=== PATIENT | male | born 1970 | race Caucasian/White ===

== ENCOUNTER 2016-08-31 10:02 | Emergency (ER) | payer OTHER ==
[2016-08-31 10:39] VITALS: BP 107/69
--- NOTE | 2016-08-31 10:57 | UC ---
Abdominal Pain Male HPI - HPI Summary HPI Summary: diarrhea for 2 days. Yesterday he had vague periumbilical aching pain. Today he is having INTERMITTENT flashes of pain in right lower quadrant. Pain will come on, but somewhat intense for less than a minute, then go away. No vomiting or fever. No continuation of the diarrhea today. Was able to eat some juice and toast today with no change in the pain. No history of abdominal surgeries. HE is worried about appendicitis. - History of Current Complaint Chief Complaint: UCAbdominalPain Stated Complaint: ABD PAIN Time Seen by Provider: 08/31/16 10:51 Hx Obtained From: Patient Onset/Duration: Gradual Onset, Lasting Days - 2 Timing: Intermittent Episodes Lasting: - less than a minute Severity Initially: Mild Severity Currently: Moderate Location: Discrete At: RLQ Radiates: No Character: Aching, Colicy, Cramping, Sharp Aggravating Factor(s):: Nothing Alleviating Factor(s): Spontaneous Resolution, Nothing Associated Signs And Symptoms: Positive: Decreased Appetite, Diarrhea - yesterday, mild. Negative: Fever, Cough, Chest Pain, Dizzy, Back Pain, Constipation, Blood in Stool, Urinary Symptoms, Nausea, Vomiting - Risk Factors Testicular Torsion: Negative Cardiac Risk Factors: Negative - Allergies/Home Medications Allergies/Adverse Reactions: Allergies Allergy/AdvReac Type Severity Reaction Status Date / Time Penicillins [PCN] Allergy Rash Verified 01/06/16 21:46 Home Medications: Home Medications Lisdexamfetamine Dimesylate [Vyvanse] 50 mg PO 08/31/16 [History] PMH/Surg Hx/FS Hx/Imm Hx Endocrine History Of: Denies: Diabetes, Thyroid Disease Cardiovascular History Of: Denies: Cardiac Disorders, Hypertension Respiratory History Of: Denies: COPD, Asthma GI/ History Of: Denies: Ulcer Psychological History Of: Reports: Depression - ON MEDICATION FOR - Surgical History Surgical History: Yes Surgery Procedure, Year, and Place: COMPOUND FRACTURE- WRIST. REPAIR OF FRACTURED NOSE. CYST REMOVED FROM [facility]. ALL DONE A TEENAGER. RIGHT THUMB SURGERY - Family History Known Family History: Positive: Other - no known GI disorders - Social History Occupation: Employed Full-time Lives: With Family Alcohol Use: None Substance Use Type: None Smoking Status (MU): Former Smoker Amount Used/How Often: 1/2-1 PPD X 15 YEARS When Did the Patient Quit Smoking/Using Tobacco: 2011 - Immunization History Most Recent Tetanus Shot: within the last 5 years Review of Systems Constitutional: Negative Skin: Negative Eyes: Negative ENT: Negative Respiratory: Negative Cardiovascular: Negative Gastrointestinal: Abdominal Pain, Diarrhea Genitourinary: Negative Motor: Negative Neurovascular: Negative Musculoskeletal: Negative Neurological: Negative Psychological: Negative All Other Systems Reviewed And Are Negative: Yes Physical Exam Triage Information Reviewed: Yes Appearance: Well-Appearing, No Pain Distress, Well-Nourished Vital Signs: Initial Vital Signs Temp 97.5 F 08/31/16 10:35 Pulse 54 08/31/16 10:35 Resp 18 08/31/16 10:35 BP 107/69 08/31/16 10:35 Pulse Ox 99 08/31/16 10:35 Vital Signs Reviewed: Yes Eye Exam: Normal Neck exam: Normal Respiratory Exam: Normal Cardiovascular Exam: Normal Abdomen Description: Positive: No Organomegaly, Soft, Bruit, Other: - mild discomfort on palpation in RLQ, mild rebound tenderness. Jumps up from chair, no discomfort with walking.. Negative: CVA Tenderness (R), CVA Tenderness (L), Distended, Guarding, Hernia @, Hepatomegaly, McBurney's Point Tenderness, Peritoneal Signs, Pulsatile Mass, Splenomegaly Musculoskeletal Exam: Normal Neurological Exam: Normal Psychological Exam: Normal Abd Pain Male Course/Dx - Course Course Of Treatment: I don't have enough suspicion for appendicitis at this time to order a CT abdomen with contrast. We discussed the idea that this is likely an enteritis that goes along with the idea, but could be early appendicitis. He will monitor symptoms at home, go to ER if fever, worsening pain, vomiting. - Differential Dx/Clinical Impression Provider Diagnoses: enteritis Discharge - Discharge Plan Condition: Stable Disposition: HOME Prescriptions: Dicyclomine CAP* [Bentyl CAP*] 10 mg PO TID PRN #30 cap PRN Reason: intestinal cramping Patient Education Materials: Gastroenteritis (ED) Additional Instructions: If your pain worsens and becomes constant, particularly if you have a fever over 100.5, vomiting, and can't walk straight upright because of pain, go to the ER for further evaluation
== END 2016-08-31 11:01 | disposition home or self-care (01) ==
LOC: UCEAST 10:02
DX: K52.9 Noninfective gastroenteritis and colitis, unspecified (principal); F32.9 Major depressive disorder, single episode, unspecified; Z87.891 Personal history of nicotine dependence
CPT/HCPCS: 99212; G0463

== ENCOUNTER 2016-09-26 21:02 | Emergency (ER) | payer OTHER ==
[2016-09-26 22:17] VITALS: BP 134/72
--- NOTE | 2016-09-26 23:25 | UC ---
Deep Garrett Erika, scribed for Deena Muñoz MD on 09/26/16 at 2230 . Abdominal Pain Male HPI - HPI Summary HPI Summary: Patient is a 46-year-old male presenting to [facility] with a CC of a lump superior to the umbilicus. Patient noticed it this morning and is concerned that it is a hernia. Patient notes associated periumbilical pain that is rated a 4/10. 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 - History of Current Complaint Chief Complaint: UCAbdominalPain Stated Complaint: ABD PAIN Time Seen by Provider: 09/26/16 22:26 Hx Obtained From: Patient Onset/Duration: Lasting Hours - noticed hours ago, Still Present Timing: Constant Severity Currently: Moderate Pain Intensity: 4 Pain Scale Used: 0-10 Numeric Location: Other - periumbilical Radiates: No Character: Aching Aggravating Factor(s):: Nothing Alleviating Factor(s): Nothing Associated Signs And Symptoms: Positive: Other - lump in periumbilical area. Negative: Fever, Constipation, Urinary Symptoms - Allergies/Home Medications Allergies/Adverse Reactions: Allergies Allergy/AdvReac Type Severity Reaction Status Date / Time Penicillins [PCN] Allergy Rash Verified 01/06/16 21:46 PMH/Surg Hx/FS Hx/Imm Hx Endocrine History Of: Denies: Diabetes, Thyroid Disease Cardiovascular History Of: Denies: Cardiac Disorders, Hypertension Respiratory History Of: Denies: COPD, Asthma GI/ History Of: Denies: Ulcer Psychological History Of: Reports: Depression - ON MEDICATION FOR - Surgical History Surgical History: Yes Surgery Procedure, Year, and Place: COMPOUND FRACTURE- WRIST. REPAIR OF FRACTURED NOSE. CYST REMOVED FROM [facility]. ALL DONE A TEENAGER. RIGHT THUMB SURGERY - Family History Known Family History: Positive: Other - adenocarcinoma father - Social History Occupation: Employed Full-time Lives: With Family Alcohol Use: None Substance Use Type: None Smoking Status (MU): Former Smoker Amount Used/How Often: 1/2-1 PPD X 15 YEARS When Did the Patient Quit Smoking/Using Tobacco: 2011 - Immunization History Most Recent Tetanus Shot: within the last 5 years Review of Systems Constitutional: Negative Skin: Negative Eyes: Negative ENT: Negative Respiratory: Negative Cardiovascular: Negative Gastrointestinal: Abdominal Pain - with lump Genitourinary: Negative Motor: Negative Neurovascular: Negative Musculoskeletal: Negative Neurological: Negative Psychological: Negative All Other Systems Reviewed And Are Negative: Yes Physical Exam Triage Information Reviewed: Yes Appearance: Well-Appearing, Well-Nourished, Pain Distress - mild Vital Signs: Initial Vital Signs Temp 98.6 F 09/26/16 21:42 Pulse 69 09/26/16 21:42 Resp 16 09/26/16 21:42 BP 134/72 09/26/16 21:42 Pulse Ox 99 09/26/16 21:42 Vital Signs Reviewed: Yes Eyes: Positive: Conjunctiva Clear ENT: Positive: Normal ENT inspection Neck: Positive: Supple Respiratory: Positive: No respiratory distress Cardiovascular: Positive: RRR, Pulses Normal, Brisk Capillary Refill Abdomen Description: Positive: No Organomegaly, Soft, Hernia @ - tiny reducible umbilical hernia and 2cm reducible ventral hernia superior to umbilicus; no redness, Other: - tender periumbilical. Negative: Distended, Guarding, McBurney 's Point Tenderness, Peritoneal Signs, Pulsatile Mass Bowel Sounds: Positive: Present Musculoskeletal: Positive: Strength Intact, ROM Intact Neurological: Positive: Alert, Muscle Tone Normal Psychological Exam: Normal Skin Exam: Normal Abd Pain Male Course/Dx - Course Course Of Treatment: pt advised of signs and symptoms of incarcerated hernia and advised to go to ED if unable to reduce hernia - Differential Dx/Clinical Impression Differential Diagnosis/HQI/PQRI: Appendicitis, Bowel Obstruction, Diverticulitis , Other - hernia Provider Diagnoses: Umbilical hernia, reducible. ventral hernia, reducible Discharge - Discharge Plan Condition: Stable Disposition: HOME Patient Education Materials: Umbilical Hernia (ED) Referrals: Shaggy Clayton MD [Medical Doctor] - Maximino Coe MD [Primary Care Provider] - 2 Days Additional Instructions: Please call general surgery for a follow up. GO TO THE ER FOR ANY NEW OR WORSENING SYMPTOMS. The documentation as recorded by the Deep huertas Erika accurately reflects the service I personally performed and the decisions made by , Deena Muñoz MD.
== END 2016-09-26 22:43 | disposition home or self-care (01) ==
LOC: UCEAST 21:02
DX: K42.9 Umbilical hernia without obstruction or gangrene (principal); K43.9 Ventral hernia without obstruction or gangrene; Z87.891 Personal history of nicotine dependence; Z88.0 Allergy status to penicillin
CPT/HCPCS: 99211; G0463

== ENCOUNTER → 2016-10-12 07:47 | Day surgery (SDC) | payer OTHER ==
--- NOTE | 2016-09-30 07:47 | HP ---
PREOPERATIVE HISTORY AND PHYSICAL: DATE OF ADMISSION: 10/12/16 This patient is scheduled for same-day surgery admission by Dr. Sanon on 10/12/16. ATTENDING SURGEON: Roland Sanon MD (dictated by Lila Kelsey NP). CHIEF COMPLAINT: Umbilical hernia. HISTORY OF PRESENT ILLNESS: The patient is a 46-year-old male recently evaluated by Dr. Sanon; the patient reports a history of umbilical hernia as an infant and he reports that it was not repaired. Recently on awakening, he noticed a painful lump above the umbilicus. He presented to the [facility] [place] [place] that day and was diagnosed with a reducible umbilical hernia. The patient continues to manually reduce it since then. He denies any nausea, vomiting or change in bowel habits or urinary habits. He denies any ongoing pain. Dr. Sanon has examined the patient and notes a 1 cm reduced umbilical hernia and there is also a reducible mass superior to this, which is mildly tender. Dr. Sanon has recommended open repair of the ventral hernias, both umbilical and supraumbilical, possible mesh as a same- day surgery procedure and has discussed the nature of the surgery, the rationale for the surgery, the relevant risks, benefits, and alternatives. Today I reviewed the typical postoperative care and recovery, the patient has had a chance to ask questions and stated that he understands the information and is satisfied with the answers given to his questions. He will sign surgical consent on the day of surgery. PAST MEDICAL HISTORY: He was diagnosed with mononucleosis and cytomegalovirus in June 2016; he states that he also had an episode of psoriasis associated with psoriatic arthritis at that time. PAST SURGICAL HISTORY: Excision of nail on the right thumb, 2014 after a work injury; repair of compound fracture right wrist, 1985; oral reconstructive surgery age 15 after trauma; and excision of cysts along the mandible in 1989. MEDICATIONS: Lexapro 20 mg p.o. daily in the morning. ALLERGIES: PENICILLIN causes hives. FAMILY HISTORY: Father at age 53 with a history of lung cancer. Mother is alive and well at age 75. No known anesthesia complications, bleeding tendencies or clotting disorders in the family. SOCIAL HISTORY: He is and is employed as a estrella; he quit smoking about 8 years ago after smoking 1 pack per day for 10 years; he denies the use of alcohol or other substances and routinely exercises. REVIEW OF SYSTEMS: He denies any recent constitutional symptoms; he has recovered from mononucleosis, cytomegalovirus and psoriatic arthritis which was initially diagnosed in June 2016; he denies any cardiovascular conditions or complaints; he denies any history of deep vein thrombosis or pulmonary embolism. He denies any respiratory conditions or complaints; he denies any previous anesthesia complications. He denies any gastrointestinal complaints. He denies any signs or symptoms to suggest incarceration or strangulation of the ventral hernias. He denies any bleeding tendencies and has never received a blood transfusion. He denies any genitourinary complaints; he has bouts of depression and suffers from occasional migraine headaches. He denies any musculoskeletal complaints and denies any neurologic complaints. PHYSICAL EXAM: GENERAL SURVEY: The patient is a 46-year-old male, well developed, well nourished, in no acute distress. VITAL SIGNS: Height 69 inches, weight 200 pounds, body mass index 29.5. Blood pressure 102/68, pulse 74 and regular, respiratory rate 16, temperature 98.2 tympanic. HEENT: Benign. NECK: Supple. No cervical lymphadenopathy. No supraclavicular lymphadenopathy. BACK: No CVA tenderness. LUNGS: Breath sounds bilaterally clear and equal. HEART: Regular rate and rhythm. No murmurs or rubs appreciated. ABDOMEN: Active bowel sounds, soft and nondistended. There is a reducible mass in the supraumbilical region, which is mildly tender consistent with hernia and a small umbilical hernia. Edges of the defect are not well appreciated. No other palpable masses. No organomegaly. GENITALIA AND RECTAL EXAMS: Deferred. EXTREMITIES: Warm without edema or skin ulceration. SKIN: Warm, dry and intact. NEUROLOGIC: Alert and oriented x3. Steady gait. IMPRESSION: Ventral hernias (supraumbilical and umbilical). PLAN: Same-day surgery admission to Dr. Sanon' service on 10/12/16, for open repair of the ventral hernias (supraumbilical and umbilical) with possible mesh. LILA KELSEY NP CC: Roland Sanon MD at [facility]; Maximino Coe MD* [id number]/[facility] #: [id number] MARYD
[~2016-10-12 07:47] MED LIST: Buffered Lidocaine 1% SYRIN* 3 ML/SYR SYRINGE INTRADERM ONE; Bupivacaine 0.5% W/EPI SDV* 30 ML VIAL ONE; Clindamycin 900 MG IVPREMIX(* 900 MG/50 ML SDV IV ONE; Dexamethasone IV* 4 MG/ML 1 ML (4 MG) IV SLOW PU ONE; Dexamethasone IV* 4 MG/ML 1 ML (4 MG) ONE; DiMENhydriNATE IV* 50 MG/ML VIAL IV PUSH PRN; Famotidine IV* 10 MG/ML 2 ML (20 mg) IV ONE; Famotidine IV* 10 MG/ML 2 ML (20 mg) ONE; HYDROmorphone* 1 MG/ML 1 ML SYR IV PRN; HYDROmorphone* 1 MG/ML 1 ML SYR ONE; Ketorolac INJ* 30 MG/ML 1 ML VIAL ONE; Lidocaine 2% PF* 5 ML VIAL ONE; Midazolam* 1 MG/ML 2 ML VIAL (2 MG) ONE; Ondansetron INJ* 2 MG/ML VIAL IV PRN; Ondansetron INJ* 2 MG/ML VIAL ONE; PROCHLORPERAZINE INJ 5 MG/ML 2 ML VIAL IV PRN; Propofol* 10 MG/ML 20 ML BTL IV PUSH ONE; Scopolamine 1.5 mg* PATCH TRANSDERM PRN; Scopolomine PATCH Remove* 1 NOTE MISC PATCH OFF ONE; fentaNYL* 50 MCG/ML 2 ML VIAL (100 MCG VIAL) IV PRN; fentaNYL* 50 MCG/ML 2 ML VIAL (100 MCG VIAL) ONE; oxyCODONE/Acetamin 5/325 MG* TAB ONE; oxyCODONE/Acetamin 5/325 MG* TAB PO ONE
[2016-10-12 14:58] VITALS: BP 106/64
--- NOTE | 2016-10-13 14:54 | OP ---
DATE OF OPERATION: 10/12/16 - [facility] DATE OF : 74 SURGEON: Roland Sanon MD PRESCHOOL TEACHER ASSISTANT: None. ANESTHESIOLOGIST: Dr. Moore. ANESTHESIA: General. PRE-OP DIAGNOSIS: Ventral hernias. POST-OP DIAGNOSIS: Ventral hernias. OPERATIVE PROCEDURE: Open repair of ventral hernias with mesh. ESTIMATED BLOOD LOSS: Minimal. IV FLUIDS: Crystalloid. SPECIMEN: None. DRAINS: None. COMPLICATIONS: None. COUNT: The instrument, needle, and sponge counts were correct. DESCRIPTION OF PROCEDURE: The patient was brought to the operating room and placed on the table supine. Sequential compression devices were placed on both lower extremities and general anesthesia was administered. His abdomen was prepped and draped in the usual sterile fashion. Time-out was performed and he received appropriate intravenous antibiotics. Local anesthetic was infiltrated in the supraumbilical region situated between the patient's umbilical hernia and supraumbilical hernia. After creating the incision with 15-blade scalpel, subcutaneous tissues were divided with cautery, and blunt and sharp dissection was used to dissect out the supraumbilical hernia site, which was about 1 cm and contained fat, which was easily reduced and the site was closed with 0 Ti-Cron suture in interrupted figure-of-8 fashion. There was a small bridge of about a centimeter of fascia before the umbilical hernia was encountered and the umbilical hernia was about 1.5 cm in size. After dividing the umbilical stalk from the abdominal wall and reducing the contents of the umbilical hernia, which was fat, it was decided to place a Ventrio mesh circular patch to perform the repair. The medium size patch was placed into the peritoneal cavity and drawn up through the umbilical hernia defect and then sutured superiorly and inferiorly with 0 Ti-Cron sutures in interrupted fashion. Tabs of the mesh were cut and then the umbilical defect was closed with 0 Polysorb in interrupted figure- of-8 fashion. The umbilical stalk was reapproximated to the fascia with 3-0 Polysorb and the skin was closed with 4-0 Monocryl in running subcuticular fashion. Steri-Strips were applied and then dressings of 4x4 gauze were applied as well. The patient tolerated the procedure. He was awakened uneventfully and transferred to the recovery room in stable condition. CC: Maximino Coe MD* [id number]/[facility] #: [id number] MINI
== END | disposition home or self-care (01) ==
LOC: OR 07:47
PROVIDERS: ATTEND Surgery
DX: H43.9 Unspecified disorder of vitreous body (principal); Z87.891 Personal history of nicotine dependence; K21.9 Gastro-esophageal reflux disease without esophagitis
CPT/HCPCS: A9270-GY; C1781; J1100; J1170; J1885; J2250; J2405; J2704; J3010

== ENCOUNTER 2016-12-03 21:02 | Emergency (ER) | payer OTHER ==
[2016-12-03 21:10] VITALS: BP 118/67
[2016-12-03] MEDS ORDERED: Clindamycin CAP* 150 MG PO ONE (21:21)
--- NOTE | 2016-12-03 21:21 | UC ---
Dental HPI - HPI Summary HPI Summary: The patient comes in today for: 1. Pain behind the back right lower molar: Onset: 2 days. Palliative/provocative: Nothing makes the pain better or worse other than ibuprofen helping. Quality: Ache Region: Behind the right lower molar. Severity: 7/10 Time: Constant. Associated symptoms: Fevers: None. * - History of Current Complaint Chief Complaint: UCDentalProblem Stated Complaint: DENTAL COMPLAINT Time Seen by Provider: 12/03/16 21:14 - Allergies/Home Medications Allergies/Adverse Reactions: Allergies Allergy/AdvReac Type Severity Reaction Status Date / Time Penicillins [PCN] Allergy Severe Rash Verified 12/03/16 21:11 Home Medications: Home Medications Ibuprofen TAB* [Motrin TAB* 600 MG] 12/03/16 [History] PMH/Surg Hx/FS Hx/Imm Hx Previously Healthy: No Endocrine History Of: Denies: Diabetes, Thyroid Disease, Hyperthyroidism, Hypothyroidism, Dyslipidemia Cardiovascular History Of: Denies: Cardiac Disorders, Hypertension, Pacemaker/ICD, Myocardial Infarction , Congestive Heart Failure, Atrial Fibrillation, Deep Vein Thrombosis, Bleeding Disorders Respiratory History Of: Denies: COPD, Asthma, Bronchitis, Pneumonia, Pulmonary Embolism GI/ History Of: Denies: Gastroesophageal Reflux, Ulcer, Gastrointestinal Bleed, Gall Bladder Disease, Kidney Stones, Diverticulitis, Renal Disease, Urosepsis Neurological History Of: Reports: Migraine Denies: TIA, CVA, Dementia, Seizures Psychological History Of: Reports: Depression - ON MEDICATION FOR Denies: Anxiety, Bipolar Disorder, Schizophrenia, Post Traumatic Stress Disorder Cancer History Of: Denies: Lung Cancer, Colorectal Cancer, Breast Cancer, Prostate Cancer, Cervical Cancer Other History Of: Negative For: HIV, Hepatitis B, Hepatitis C, Anticoagulant Therapy - Surgical History Surgical History: Yes Surgery Procedure, Year, and Place: COMPOUND FRACTURE- WRIST. REPAIR OF FRACTURED NOSE. CYST REMOVED FROM [facility]. ALL DONE A TEENAGER. RIGHT THUMB SURGERY. Fibroma. hernia - Family History Known Family History: Positive: Other - adenocarcinoma father Negative: Cardiac Disease, Hypertension - Social History Occupation: Employed Full-time Alcohol Use: None Substance Use Type: None Smoking Status (MU): Former Smoker Amount Used/How Often: 1/2-1 PPD X 15 YEARS When Did the Patient Quit Smoking/Using Tobacco: 2011 - Immunization History Most Recent Tetanus Shot: within the last 5 years Review of Systems Constitutional: Negative Skin: Negative Eyes: Negative ENT: Dental Pain Respiratory: Negative Cardiovascular: Negative Gastrointestinal: Negative Genitourinary: Negative Motor: Negative All Other Systems Reviewed And Are Negative: Yes Physical Exam Triage Information Reviewed: Yes Appearance: Well-Appearing, No Pain Distress, Well-Nourished Vital Signs: Initial Vital Signs Temp 98.9 F 12/03/16 21:06 Pulse 88 12/03/16 21:06 Resp 18 12/03/16 21:06 BP 118/67 12/03/16 21:06 Pulse Ox 98 12/03/16 21:06 Vital Signs Reviewed: Yes Eyes: Positive: Conjunctiva Clear. Negative: Discharge ENT: Positive: Hearing grossly normal. Negative: Pharyngeal erythema, Nasal congestion, TM bulging, TM dull, TM red, Tonsillar swelling, Tonsillar exudate Dental: Positive: Percussion Tenderness @ - #30. Negative: Gross Decay/Caries @ , Dental Fracture @ Neck: Positive: Supple, Nontender, No Lymphadenopathy. Negative: Nuchal Rigidity Respiratory: Positive: Chest non-tender, Lungs clear, No respiratory distress, No accessory muscle use. Negative: Crackles, Stridor Cardiovascular: Positive: RRR, No Murmur Abdomen Description: Positive: Nontender, No Organomegaly, Soft. Negative: Distended, Guarding Musculoskeletal: Positive: Strength Intact, ROM Intact, No Edema Neurological: Positive: Alert, Muscle Tone Normal Psychological: Positive: Age Appropriate Behavior, Consolable Skin: Negative: rashes, breakdown Dental Complaint Course/Dx - Course Course Of Treatment: Patient was told that I did not see any obvious problems with his lower right molar or the area around it other than the tenderness of the tooth. Will treat for pulpitis. - Differential Dx/Diagnosis Provider Diagnoses: pulpitis #30 Discharge - Discharge Plan Condition: Stable Disposition: HOME Patient Education Materials: Toothache (ED) Additional Instructions: Please see your dentist as soon as you can.
[2016-12-03] MEDS ORDERED: Ibuprofen TAB* 400 MG PO ONE (21:22)
== END 2016-12-03 21:30 | disposition home or self-care (01) ==
LOC: UCEAST 21:02
DX: K04.01 Reversible pulpitis (principal); Z88.0 Allergy status to penicillin; G43.909 Migraine, unspecified, not intractable, without status migrainosus; F32.9 Major depressive disorder, single episode, unspecified; Z87.891 Personal history of nicotine dependence
CPT/HCPCS: 99212; A9270-GY; G0463

== ENCOUNTER 2018-08-17 07:57 | Emergency (ER) | payer OTHER ==
[2018-08-17 08:05] VITALS: BP 129/81
--- NOTE | 2018-08-17 08:59 | UC ---
Ear Complaint HPI - HPI Summary HPI Summary: Healthy 48-year-old male with complaint of left ear pain. Beginning this morning. He states that he has been congested recently. He denies trauma or swimming. Pain inside ear and with palpation of outer ear. A brief review of current medications, habits and visit history is non- contributory to current complaint. Vital signs are stable. - History of Current Complaint Chief Complaint: UCEar Stated Complaint: EAR COMPLAINT Time Seen by Provider: 08/17/18 08:52 Pain Intensity: 8 - Allergies/Home Medications Allergies/Adverse Reactions: Allergies Allergy/AdvReac Type Severity Reaction Status Date / Time Penicillins Allergy Rash Verified 08/17/18 08:05 PMH/Surg Hx/FS Hx/Imm Hx Previously Healthy: Yes Other History Of: Negative For: HIV, Hepatitis B, Hepatitis C, Anticoagulant Therapy - Surgical History Surgical History: Yes Surgery Procedure, Year, and Place: COMPOUND FRACTURE- [facility]. REPAIR OF FRACTURED NOSE. CYST REMOVED FROM [facility]. ALL DONE A TEENAGER. RIGHT THUMB SURGERY. Fibroma. hernia - Family History Known Family History: Positive: Other - adenocarcinoma father Negative: Cardiac Disease, Hypertension - Social History Occupation: Employed Full-time - contractor Alcohol Use: None Substance Use Type: None Smoking Status (MU): Former Smoker Amount Used/How Often: 1/2-1 PPD X 15 YEARS When Did the Patient Quit Smoking/Using Tobacco: 2011 - Immunization History Most Recent Tetanus Shot: within the last 5 years Review of Systems All Other Systems Reviewed And Are Negative: Yes Constitutional: Positive: Negative Skin: Positive: Negative Eyes: Positive: Negative ENT: Positive: Ear Ache - left Respiratory: Positive: Negative Cardiovascular: Positive: Negative Gastrointestinal: Positive: Negative Genitourinary: Positive: Negative Motor: Positive: Negative Neurovascular: Positive: Negative Musculoskeletal: Positive: Negative Neurological: Positive: Negative Psychological: Positive: Negative Physical Exam Triage Information Reviewed: Yes Appearance: Well-Appearing, No Pain Distress Vital Signs: Initial Vital Signs Temp 97.1 F 08/17/18 08:01 Pulse 73 08/17/18 08:01 Resp 16 08/17/18 08:01 BP 129/81 08/17/18 08:01 Pulse Ox 98 08/17/18 08:01 Vital Signs Reviewed: Yes Eye Exam: Normal Eyes: Positive: Conjunctiva Clear ENT Exam: Normal ENT: Positive: TM red - left, Other - tragus tender, left ear Dental Exam: Normal Neck exam: Normal Neck: Positive: 1 Respiratory Exam: Normal Respiratory: Positive: Chest non-tender, Lungs clear, Normal breath sounds Cardiovascular Exam: Normal Cardiovascular: Positive: RRR, No Murmur, Pulses Normal Abdominal Exam: Normal Abdomen Description: Positive: Nontender, No Organomegaly, Soft Bowel Sounds: Positive: Present Musculoskeletal Exam: Normal Neurological Exam: Normal Psychological Exam: Normal Skin Exam: Normal Ear Complaint Course/Dx - Course Course Of Treatment: Healthy 48-year-old male with complaint of left ear pain. Beginning this morning. He states that he has been congested recently. He denies trauma or swimming. Pain inside ear and with palpation of outer ear. He has a red left ear drum, and a tender tragus, left out ear. Dx is left otitis externa and media. MEDICATIONS REVIEWED. BP ELEVATED secondary to urgent/ emergent current condition. - Differential Dx/Diagnosis Differential Diagnosis/HQI/PQRI: Otitis Externa, Otitis Media Provider Diagnosis: Otitis media, Otitis externa Discharge - Sign-Out/Discharge Documenting (check all that apply): Patient Departure All imaging exams completed and their final reports reviewed: No Studies - Discharge Plan Condition: Stable Disposition: HOME Prescriptions: DOXYcycline CAP(*) [DOXYcycline 100MG CAP(*)] 100 mg PO BID #14 cap Neomyc/Polym/HC 1% OTIC SUSP* [Cortisporin Otic Susp 1%*] 4 drop LEFT EAR QID # 1 btl MDD 4 DROPS Patient Education Materials: Otitis Externa (DC), Ear Infection (ED) Referrals: Maximino Coe MD [Primary Care Provider] - Additional Instructions: WE DISCUSSED: PLEASE SEEK CARE AT THE EMERGENCY DEPARTMENT IF SYMPTOMS WORSEN OR IF NEW SYMPTOMS DEVELOP. FOLLOW UP WITH YOUR PRIMARY CARE PHYSICIAN IF CONDITION CONTINUES BEYOND 3 DAYS WITHOUT IMPROVEMENT. YOUR DIAGNOSIS IS: left ear: outer ear infection and middle ear infection. YOUR PRESCRIPTION RECOMMENDATION IS: doxycycline, 1 pill, twice a day for 7 days; ear drops, four times a day for 7 days. FOR PAIN AND/OR SLEEP: For pain: Ibuprofen (Motrin and other brand names) 400-600mg PLUS acetaminophen (Tylenol and other brand names) 500mg - 1000mg every 8 hours. Maximum is 3 doses a day. If this dosage is required for more than 5 days, you should re-check with your doctor. The combination of these two over-the- counter medications can be more effective than each one taken alone. Please check with the pharmacist if you have questions about your allergies to these medications. - Billing Disposition and Condition Condition: STABLE Disposition: Home
== END 2018-08-17 09:15 | disposition home or self-care (01) ==
LOC: UCEAST 07:57
DX: H66.92 Otitis media, unspecified, left ear (principal); H60.92 Unspecified otitis externa, left ear; R03.0 Elevated blood-pressure reading, without diagnosis of hypertension; Z88.0 Allergy status to penicillin; Z87.891 Personal history of nicotine dependence
CPT/HCPCS: 99212; G0463

== ENCOUNTER 2019-04-14 13:06 | Emergency (ER) | payer SELFPAY ==
[2019-04-14 13:17] VITALS: BP 126/91
--- NOTE | 2019-04-14 14:35 | UC ---
Abdominal Pain Male HPI - HPI Summary HPI Summary: Patient is a 48yo male presenting with abdominal cramping and distention x a couple weeks. 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 Notes chronic fatigue was worked up a month or two ago and he was positive for Lyme disease. States his "other blood counts were normal." Patient finished 20 day course of doxycycline last week. His PCP instructed him to complete a test for c diff that he completed this morning due to diarrhea complaint after taking doxy. Patient states his diarrhea was watery but has resolved. Today he notes it was black and tarry. Patient notes cramping is diffuse throughout abdomen. Nothing makes the cramping better or worse, including food, position, or medication. Denies BRBPR. Denies nausea and vomiting. Denies fever and chills. Notes 10lb weight gain over last month but states that could be because he stopped taking his adderall after 9 years. Notes constant SOB "for weeks now." Denies wheezing and cough. Denies chest pain. Patient states he takes ibuprofen for symptoms "once a day, every other day." Denies history of anemia, upper GI bleed, diverticulitis, colitis, or crohn's. Denies history of asthma or other lung problems. - History of Current Complaint Chief Complaint: UCAbdominalPain Stated Complaint: ABDOMINAL PAIN Hx Obtained From: Patient Onset/Duration: Gradual Onset, Lasting Weeks Severity Currently: Mild Pain Intensity: 3 Pain Scale Used: 0-10 Numeric - Allergies/Home Medications Allergies/Adverse Reactions: Allergies Allergy/AdvReac Type Severity Reaction Status Date / Time Penicillins Allergy Rash Verified 04/14/19 13:18 Home Medications: Home Medications Bupropion XL* [Wellbutrin XL *] 150 mg PO BID 04/14/19 [History Confirmed ] PMH/Surg Hx/FS Hx/Imm Hx Psychological History: Other - ADD Other History Of: Negative For: HIV, Hepatitis B, Hepatitis C, Anticoagulant Therapy - Surgical History Surgical History: Yes Surgery Procedure, Year, and Place: COMPOUND FRACTURE- [facility]. REPAIR OF FRACTURED NOSE. CYST REMOVED FROM [facility]. ALL DONE A TEENAGER. RIGHT THUMB SURGERY. Fibroma. hernia - Family History Known Family History: Positive: Other - adenocarcinoma father Negative: Cardiac Disease, Hypertension - Social History Alcohol Use: None Substance Use Type: None Smoking Status (MU): Former Smoker Amount Used/How Often: 1/2-1 PPD X 15 YEARS When Did the Patient Quit Smoking/Using Tobacco: 2011 - Immunization History Most Recent Tetanus Shot: within the last 5 years Review of Systems All Other Systems Reviewed And Are Negative: Yes Constitutional: Positive: Fatigue. Negative: Fever, Chills Skin: Positive: Negative Eyes: Positive: Negative. Negative: Blurred Vision ENT: Positive: Negative. Negative: Sore Throat, Ear Ache, Nasal Discharge, Sinus Congestion, Sinus Pain/Tenderness Respiratory: Positive: Shortness Of Breath. Negative: Cough Cardiovascular: Positive: Negative. Negative: Palpitations, Chest Pain Gastrointestinal: Positive: Abdominal Pain, Diarrhea. Negative: Vomiting, Nausea Genitourinary: Positive: Negative. Negative: Dysuria, Hematuria, Frequency, Vaginal/Penile Burning, Vaginal/Penile Itching, Vaginal/Penile Pain, Ulceration/ Lesion, Abnormal Bleeding Motor: Positive: Negative Neurovascular: Positive: Negative Musculoskeletal: Positive: Negative. Negative: Edema Neurological: Positive: Negative. Negative: Headache Psychological: Positive: Negative Physical Exam Triage Information Reviewed: Yes Appearance: Well-Appearing, No Pain Distress, Well-Nourished Vital Signs: Initial Vital Signs Temp 98.2 F 04/14/19 13:10 Pulse 70 04/14/19 13:10 Resp 16 04/14/19 13:10 BP 126/91 04/14/19 13:10 Pulse Ox 97 04/14/19 13:10 Vital Signs Reviewed: Yes Eyes: Positive: Conjunctiva Clear ENT Exam: Normal ENT: Positive: Normal ENT inspection, Hearing grossly normal Neck exam: Normal Neck: Positive: Supple, Nontender, No Lymphadenopathy Respiratory Exam: Normal Respiratory: Positive: Lungs clear, Normal breath sounds, No respiratory distress, No accessory muscle use. Negative: Crackles, Rhonchi, Stridor, Wheezing Cardiovascular Exam: Normal Cardiovascular: Positive: RRR, Pulses Normal. Negative: Tachycardia Abdomen Description: Positive: No Organomegaly, Soft, Other: - murphys sign negative. no sign of ascites noted on exam.. Negative: Nontender - mild tenderness to palpation of epigastric area and LLQ, CVA Tenderness (R), CVA Tenderness (L), Distended, Guarding, Hernia @, Hepatomegaly, McBurney's Point Tenderness, Peritoneal Signs, Pulsatile Mass, Splenomegaly Bowel Sounds: Positive: Present, Hypoactive Neurological: Positive: Alert Psychological: Positive: Age Appropriate Behavior Skin Exam: Normal Abd Pain Male Course/Dx - Course Course Of Treatment: Discussed patient with Dr. Tobin. Patient states he was concerned for ascites. No evidence of ascites on exam. Discussed with patient that CT scan is not recommended at this time. VS normal throughout visit and no sign of respiratory or pain distress. I strongly encouraged the patient to follow up with his PCP as soon as possible for further evaluation of his symptoms. Instructed him to return or go to the ED if symptoms worsen. Patient voiced understanding and agreed to the plan. - Differential Dx/Clinical Impression Provider Diagnosis: Abdominal cramping, generalized Discharge ED - Sign-Out/Discharge Documenting (check all that apply): Patient Departure All imaging exams completed and their final reports reviewed: No Studies - Discharge Plan Condition: Stable Disposition: HOME Patient Education Materials: Acute Abdominal Pain (ED) Referrals: Maximino Coe MD [Primary Care Provider] - As Soon As Possible Additional Instructions: As discussed, there is no concern for ascites today based on your physical exam. It is strongly recommended that you follow up with your PCP as soon as possible for further evaluation of your symptoms. Return or go to the emergency room if your symptoms worsen, including blood in the urine or stool, nausea and vomiting, excessive diarrhea, fevers, and increasing shortness of breath or difficulty breathing. - Billing Disposition and Condition Condition: STABLE Disposition: Home
== END 2019-04-14 14:20 | disposition home or self-care (01) ==
LOC: UCEAST 13:06
DX: R10.84 Generalized abdominal pain (principal); R06.02 Shortness of breath; Z88.0 Allergy status to penicillin; Z87.891 Personal history of nicotine dependence
CPT/HCPCS: 99211; G0463